=== PATIENT | male | born 1985 | race Caucasian/White ===

== ENCOUNTER 2024-02-02 01:06 | Inpatient (IN) | payer MEDICAID ==
[~2024-02-02] VITALS: Ht 175.3 cm; Wt 76.0 kg
[2024-02-02] MEDS ORDERED: vancomycin/NS 1 GM ADD-VANTAGE 250 ML IV ONE (02:45)
[2024-02-02 03:18] LABS: BASOPHILS # (AUTO) 0.1 X10'3 (0-0.2); BASOPHILS % (AUTO) 0.9 % (0-1); EOSINOPHILS # (AUTO) 0.3 X10'3 (0-0.9); EOSINOPHILS % (AUTO) 2.8 % (0-6); HEMATOCRIT 45.7 % (42.0-52.0); HEMOGLOBIN 15.1 g/dl (14.0-17.9); LYMPHOCYTES % (AUTO) 20.2 % (21-51); MEAN CORPUSCULAR HEMOGLOBIN 29.9 PG (27.0-31.0); MEAN CORPUSCULAR VOLUME 90.6 FL (78-98); MEAN PLATELET VOLUME 6.2 FL (7.4-10.4); MONOCYTES # (AUTO) 0.8 X10'3 (0-0.9); MONOCYTES % (AUTO) 7.8 % (2-12); NEUTROPHILS # (AUTO) 6.9 X10'3 (1.8-7.7); NEUTROPHILS % (AUTO) 68.3 % (42-75); PLATELET COUNT 491 X10'3 (140-440); RED BLOOD COUNT 5.05 X10'6 (4.70-6.10); RED CELL DISTRIBUTION WIDTH 13.5 % (11.5-14.5); WHITE BLOOD COUNT 10.1 X10'3 (4.5-11.0)
[2024-02-02] MEDS: normal saline 1000ML IV soln IV ONE (03:21)
[2024-02-02] MEDS: piperacillin/tazo 3.375gm/50ml 50 ML IV ONE (03:22)
[2024-02-02 03:28] LABS: ANION GAP 6 (8-16); BLOOD UREA NITROGEN 17 MG/DL (7-18); BUN/CREATININE RATIO 19.3 (10.0-20.0); CALCIUM 9.3 MG/DL (8.5-10.1); CHLORIDE 101 MMOL/L (99-107); CREATININE 0.88 MG/DL (0.60-1.10); GLUCOSE 71 MG/DL (70-104); MAGNESIUM 2.4 MG/DL (1.5-2.4); SODIUM 138 MMOL/L (135-145); TOTAL CARBON DIOXIDE 31.2 MMOL/L (24-32); eCRCL 115 ML/MIN; eGFR > 90 ML/MIN
[2024-02-02] MEDS ORDERED: iohexol 300mg/ml 100ml inj. ONE (04:11)
[2024-02-02] MEDS: VANCOMYCIN 1GM 200ML H20 (PEG) 200 ML IV ONE (04:41)
[2024-02-02] MEDS ORDERED: potassium Cl 40MEQ/1/2NS 520ml 520 ML IV PRN (05:45)
[2024-02-02] MEDS ORDERED: magnesium sulf-water 2g/50mL 50 ML IV PRN (05:45)
[2024-02-02] MEDS ORDERED: acetaminophen 325mg tablet PO PRN (05:45)
[2024-02-02] MEDS ORDERED: magnesium Cl slow-release 64mg tablet PO PRN (05:45)
[2024-02-02] MEDS ORDERED: ondansetron/PF 4mg/2ml inj IV PRN (05:45)
[2024-02-02] MEDS ORDERED: magnesium sulf-water 4G/100mL 100 ML IV PRN (05:45)
[2024-02-02] MEDS ORDERED: potassium Cl 20 mEq SR tablet PO PRN ×2 (05:45)
[2024-02-02] MEDS: normal saline 1000ml 1,000 ML IV SCH (05:57)
[2024-02-02 06:15] LABS: CLARITY,URINE CLEAR (Clear); COLOR,URINE YELLOW (Yellow); PROTEIN,URINE NEGATIVE (Neg)
[2024-02-02 06:16] LABS: BILIRUBIN,URINE NEGATIVE (Neg); GLUCOSE, URINE NEGATIVE (Neg); KETONES,URINE NEGATIVE (Neg); LEUKOCYTE ESTERASE ,URINE NEGATIVE (Neg); NITRITES, URINE NEGATIVE (Neg); OCCULT BLOOD,URINE NEGATIVE (Neg); UROBILINOGEN,URINE 0.2 E.U/dL (0.2-1.0)
[2024-02-02 06:23] LABS: UA COLLECTION TYPE CLN CATCH MIDSTREAM
[2024-02-02] MEDS: nicotine 14mg patch - 24hr TD ONE (06:24)
[2024-02-02 06:46] LABS: URINE AMPHETAMINE SCREEN POSITIVE (Neg); URINE BARBITUATE SCREEN NEGATIVE (Neg); URINE BENZODIAZEPINES SCREEN NEGATIVE (Neg); URINE CANNABINOID SCREEN NEGATIVE (Neg); URINE COCAINE SCREEN NEGATIVE (Neg); URINE METHADONE SCREEN NEGATIVE (Neg); URINE OPIATE SCREEN POSITIVE (Neg); URINE PHENCYCLIDINE SCREEN NEGATIVE (Neg)
[2024-02-02 06:58] LABS: HIV ANTIBODY 1&2 RAPID NON-REACTIVE (Neg)
[2024-02-02] MEDS: PERFLUTREN PROTEIN-A MICROSPHR (Optison) 0.22 MG/ML 3ML VIAL IV ONE (07:05)
[2024-02-02] MEDS: K and/or MAG REPLACEMENT MC SCH (08:00)
[2024-02-02] MEDS: morphine 4 MG/ML inj SYRINge IV SCH (08:12)
[2024-02-02] MEDS: piperacillin/tazo 3.375gm/50ml 50 ML IV SCH (10:22)
[2024-02-02 17:00] VITALS: BP 92/46; PULSE 86; RESP 18; TEMP 98; O2SAT 97
[2024-02-02] MEDS: VANCOMYCIN/WATER FOR INJ (PEG) 1.25GM/250 ML IVPB IV SCH (19:46)
[2024-02-02 20:00] VITALS: RESP 16; O2SAT 97
[2024-02-02 22:00] VITALS: BP 110/64; PULSE 78; RESP 16; TEMP 97.7; O2SAT 97
[2024-02-03 06:00] VITALS: BP 102/50; PULSE 81; RESP 16; TEMP 98; O2SAT 99
[2024-02-03 06:51] LABS: BASOPHILS # (AUTO) 0.1 X10'3 (0-0.2); EOSINOPHILS # (AUTO) 0.3 X10'3 (0-0.9); EOSINOPHILS % (AUTO) 3.6 % (0-6); HEMATOCRIT 42.8 % (42.0-52.0); HEMOGLOBIN 14.2 g/dl (14.0-17.9); LYMPHOCYTES # (AUTO) 1.9 X10'3 (1.1-4.8); LYMPHOCYTES % (AUTO) 22.4 % (21-51); MEAN CORPUSCULAR HEMOGLOBIN 30.2 PG (27.0-31.0); MEAN CORPUSCULAR HGB CONC 33.1 g/dL (33.0-36.5); MEAN CORPUSCULAR VOLUME 91.2 FL (78-98); MEAN PLATELET VOLUME 6.3 FL (7.4-10.4); MONOCYTES # (AUTO) 0.7 X10'3 (0-0.9); MONOCYTES % (AUTO) 8.7 % (2-12); NEUTROPHILS # (AUTO) 5.3 X10'3 (1.8-7.7); NEUTROPHILS % (AUTO) 64.3 % (42-75); PLATELET COUNT 480 X10'3 (140-440); RED BLOOD COUNT 4.69 X10'6 (4.70-6.10); RED CELL DISTRIBUTION WIDTH 13.5 % (11.5-14.5); WHITE BLOOD COUNT 8.3 X10'3 (4.5-11.0)
[2024-02-03 07:17] LABS: ALBUMIN 2.5 G/DL (3.4-5.0); ANION GAP 10 (8-16); BLOOD UREA NITROGEN 11 MG/DL (7-18); BUN/CREATININE RATIO 12.8 (10.0-20.0); CALCIUM 9.1 MG/DL (8.5-10.1); CHLORIDE 103 MMOL/L (99-107); CREATININE 0.86 MG/DL (0.60-1.10); GLUCOSE 105 MG/DL (70-104); SODIUM 138 MMOL/L (135-145); TOTAL CARBON DIOXIDE 25.1 MMOL/L (24-32); eCRCL 118 ML/MIN; eGFR > 90 ML/MIN
[2024-02-03] MEDS: piperacillin/tazo 3.375gm/50ml 50 ML IV SCH (07:25)
[2024-02-03 08:00] VITALS: RESP 16; O2SAT 97
[2024-02-03] MEDS: HYDROcodone/acetaminophen 5mg/325mg tablet PO PRN (08:35)
[2024-02-03 10:00] VITALS: BP_SYST 104; BP_SYST 115; BP_DIAS 67; BP_DIAS 71; PULSE 109; PULSE 82; RESP 16; TEMP 98.2; TEMP 98.3; O2SAT 96; O2SAT 97
[2024-02-03 18:00] VITALS: BP 99/40; PULSE 83; RESP 18; TEMP 98.1; O2SAT 100
[2024-02-03 22:00] VITALS: BP 101/61; PULSE 87; RESP 18; TEMP 98.2; O2SAT 98
[2024-02-04] MEDS: VANCOMYCIN LEVEL IV ONE (04:41)
[2024-02-04 04:43] LABS: BASOPHILS # (AUTO) 0.1 X10'3 (0-0.2); EOSINOPHILS # (AUTO) 0.2 X10'3 (0-0.9); EOSINOPHILS % (AUTO) 2.9 % (0-6); HEMATOCRIT 42.5 % (42.0-52.0); LYMPHOCYTES # (AUTO) 1.7 X10'3 (1.1-4.8); LYMPHOCYTES % (AUTO) 22.7 % (21-51); MEAN CORPUSCULAR HGB CONC 32.9 g/dL (33.0-36.5); MEAN CORPUSCULAR VOLUME 91.1 FL (78-98); MEAN PLATELET VOLUME 6.2 FL (7.4-10.4); MONOCYTES # (AUTO) 0.6 X10'3 (0-0.9); MONOCYTES % (AUTO) 7.6 % (2-12); NEUTROPHILS # (AUTO) 4.9 X10'3 (1.8-7.7); NEUTROPHILS % (AUTO) 65.8 % (42-75); PLATELET COUNT 478 X10'3 (140-440); RED BLOOD COUNT 4.66 X10'6 (4.70-6.10); RED CELL DISTRIBUTION WIDTH 13.5 % (11.5-14.5); WHITE BLOOD COUNT 7.4 X10'3 (4.5-11.0)
[2024-02-04 04:57] LABS: ALBUMIN 2.8 G/DL (3.4-5.0); ANION GAP 6 (8-16); BLOOD UREA NITROGEN 12 MG/DL (7-18); BUN/CREATININE RATIO 12.5 (10.0-20.0); CALCIUM 9.1 MG/DL (8.5-10.1); CHLORIDE 99 MMOL/L (99-107); CREATININE 0.96 MG/DL (0.60-1.10); GLUCOSE 115 MG/DL (70-104); POTASSIUM 3.8 MMOL/L (3.5-5.1); SODIUM 136 MMOL/L (135-145); TOTAL CARBON DIOXIDE 31.5 MMOL/L (24-32); VANCOMYCIN,TROUGH 12.1 ug/mL (10.0-20.0); eCRCL 105 ML/MIN; eGFR 88 ML/MIN
[2024-02-04 06:00] VITALS: BP 132/84; PULSE 82; RESP 16; TEMP 97.5; O2SAT 97
[2024-02-04 10:00] VITALS: BP 90/49; PULSE 81; RESP 15; TEMP 97.7; O2SAT 98
[2024-02-04] MEDS: VANCOMYCIN/WATER FOR INJ (PEG) 1.5GM/300 ML IVPB IV SCH (16:34)
[2024-02-04 18:00] VITALS: BP 113/73; PULSE 86; RESP 17; TEMP 97.7; O2SAT 97
[2024-02-05 06:00] VITALS: BP 97/58; PULSE 77; RESP 13; TEMP 98.4; O2SAT 96
[2024-02-05 07:34] LABS: BASOPHILS # (AUTO) 0.1 X10'3 (0-0.2); BASOPHILS % (AUTO) 1.5 % (0-1); EOSINOPHILS # (AUTO) 0.2 X10'3 (0-0.9); EOSINOPHILS % (AUTO) 2.6 % (0-6); HEMATOCRIT 42.6 % (42.0-52.0); HEMOGLOBIN 14.4 g/dl (14.0-17.9); LYMPHOCYTES # (AUTO) 1.7 X10'3 (1.1-4.8); LYMPHOCYTES % (AUTO) 25.6 % (21-51); MEAN CORPUSCULAR HEMOGLOBIN 30.8 PG (27.0-31.0); MEAN CORPUSCULAR HGB CONC 33.7 g/dL (33.0-36.5); MEAN CORPUSCULAR VOLUME 91.4 FL (78-98); MEAN PLATELET VOLUME 6.2 FL (7.4-10.4); MONOCYTES # (AUTO) 0.5 X10'3 (0-0.9); MONOCYTES % (AUTO) 7.2 % (2-12); NEUTROPHILS # (AUTO) 4.2 X10'3 (1.8-7.7); NEUTROPHILS % (AUTO) 63.1 % (42-75); PLATELET COUNT 493 X10'3 (140-440); RED BLOOD COUNT 4.67 X10'6 (4.70-6.10); RED CELL DISTRIBUTION WIDTH 13.1 % (11.5-14.5); WHITE BLOOD COUNT 6.6 X10'3 (4.5-11.0)
[2024-02-05 07:50] LABS: ALBUMIN 2.6 G/DL (3.4-5.0); ANION GAP 3 (8-16); BLOOD UREA NITROGEN 10 MG/DL (7-18); BUN/CREATININE RATIO 10.9 (10.0-20.0); CHLORIDE 99 MMOL/L (99-107); CREATININE 0.92 MG/DL (0.60-1.10); GLUCOSE 93 MG/DL (70-104); POTASSIUM 4.4 MMOL/L (3.5-5.1); SODIUM 135 MMOL/L (135-145); TOTAL CARBON DIOXIDE 33.3 MMOL/L (24-32); eCRCL 110 ML/MIN; eGFR > 90 ML/MIN
[2024-02-05 08:00] VITALS: RESP 16; O2SAT 97
[2024-02-05 10:00] VITALS: BP 111/63; PULSE 85; RESP 16; TEMP 98.4; O2SAT 99
[2024-02-05] MEDS: linezolid 600mg tablet PO SCH (11:08)
[2024-02-05 18:00] VITALS: BP 122/63; PULSE 78; RESP 18; O2SAT 99
[2024-02-05 22:00] VITALS: BP 107/55; PULSE 84; RESP 18; TEMP 98.2; O2SAT 99
[2024-02-06] VITALS (15 sets, daily range): BP systolic 89–167; BP diastolic 43–101; PULSE 60–97; RESP 11–17; TEMP 98.3–98.6; O2SAT 97–100
[2024-02-06] MEDS: VANCOMYCIN LEVEL IV ONE (05:15)
[2024-02-06 05:47] LABS: ALBUMIN 2.6 G/DL (3.4-5.0); ANION GAP 5 (8-16); BLOOD UREA NITROGEN 10 MG/DL (7-18); BUN/CREATININE RATIO 12.3 (10.0-20.0); CALCIUM 9.2 MG/DL (8.5-10.1); CHLORIDE 102 MMOL/L (99-107); CREATININE 0.81 MG/DL (0.60-1.10); GLUCOSE 107 MG/DL (70-104); POTASSIUM 4.1 MMOL/L (3.5-5.1); SODIUM 137 MMOL/L (135-145); TOTAL CARBON DIOXIDE 29.7 MMOL/L (24-32); VANCOMYCIN,TROUGH 10.9 ug/mL (10.0-20.0); eCRCL 125 ML/MIN; eGFR > 90 ML/MIN
[2024-02-06] MEDS: ringers solution, lacted 1,000 ML IV ONE (10:25)
[2024-02-06] MEDS ORDERED: enalaprilat dihydrate 2.5mg/2ml vial IV PRN (14:25)
[2024-02-06] MEDS ORDERED: proCHLORperazine 10 MG/2 ml inj IV PRN (14:25)
[2024-02-06] MEDS ORDERED: labetalol 20mg/4ml (5mg/ml) syringe IV PRN (14:25)
[2024-02-06] MEDS ORDERED: ondansetron/PF 4mg/2ml inj IV PRN (14:25)
[2024-02-06] MEDS: ringers solution, lacted 1,000 ML IV SCH (14:25)
[2024-02-06] MEDS ORDERED: meperidine/PF 25mg/ml syringe IV PRN ×3 (14:25)
[2024-02-06] MEDS ORDERED: bacitracin 15gm ointment TP ONE (16:05)
[2024-02-06] MEDS: VANCOMYCIN 1.75GM/WATER FOR INJ (PEG) 350 ML IVPB IV SCH (16:35)
[2024-02-06] MEDS ORDERED: vancomycin 1,750 MG in NS 350ml IV soln IV SCH (17:00)
[2024-02-06] MEDS ORDERED: sevoflurane 250ml liquid IH ONE (17:52)
[2024-02-06] MEDS ORDERED: midazolam 1 mg/ML 2ml injection ONE (17:54)
[2024-02-06] MEDS ORDERED: fentaNYL /PF 50mcg/ml 5ml ampule ONE (17:55)
[2024-02-06] MEDS ORDERED: propofol inj 20 ML IV ONE (17:58)
[2024-02-06] MEDS ORDERED: LIDOcaine 2% (20mg/ml) 5ml vial ONE (17:58)
[2024-02-06] MEDS ORDERED: ondansetron/PF 4mg/2ml inj ONE (18:44)
[2024-02-06] MEDS: morphine 2 MG/ML inj. syringe IV PRN (19:15)
[2024-02-06] MEDS: morphine 4 MG/ML inj SYRINge IV PRN (19:48)
[2024-02-07] VITALS (9 sets, daily range): BP systolic 104–125; BP diastolic 50–101; PULSE 74–104; RESP 14–18; TEMP 98.1–98.7; O2SAT 97–100
[2024-02-07] MEDS: famotidine 20mg tablet PO ONE (06:15)
[2024-02-07 07:57] LABS: BASOPHILS # (AUTO) 0.1 X10'3 (0-0.2); BASOPHILS % (AUTO) 0.7 % (0-1); EOSINOPHILS % (AUTO) 0.4 % (0-6); HEMATOCRIT 40.1 % (42.0-52.0); HEMOGLOBIN 13.4 g/dl (14.0-17.9); LYMPHOCYTES # (AUTO) 1.3 X10'3 (1.1-4.8); LYMPHOCYTES % (AUTO) 11.3 % (21-51); MEAN CORPUSCULAR HEMOGLOBIN 30.3 PG (27.0-31.0); MEAN CORPUSCULAR HGB CONC 33.3 g/dL (33.0-36.5); MEAN CORPUSCULAR VOLUME 90.9 FL (78-98); MEAN PLATELET VOLUME 6.4 FL (7.4-10.4); MONOCYTES # (AUTO) 0.5 X10'3 (0-0.9); MONOCYTES % (AUTO) 3.9 % (2-12); NEUTROPHILS % (AUTO) 83.7 % (42-75); PLATELET COUNT 537 X10'3 (140-440); RED BLOOD COUNT 4.41 X10'6 (4.70-6.10); RED CELL DISTRIBUTION WIDTH 13.5 % (11.5-14.5)
[2024-02-07 08:03] LABS: ALBUMIN 2.8 G/DL (3.4-5.0); ANION GAP 6 (8-16); BLOOD UREA NITROGEN 11 MG/DL (7-18); BUN/CREATININE RATIO 14.1 (10.0-20.0); CALCIUM 8.8 MG/DL (8.5-10.1); CHLORIDE 100 MMOL/L (99-107); CREATININE 0.78 MG/DL (0.60-1.10); GLUCOSE 98 MG/DL (70-104); POTASSIUM 4.1 MMOL/L (3.5-5.1); SODIUM 134 MMOL/L (135-145); TOTAL CARBON DIOXIDE 28.3 MMOL/L (24-32); eCRCL 130 ML/MIN; eGFR > 90 ML/MIN
[2024-02-07 08:26] LABS: BASOPHILS # (AUTO) 0.1 X10'3 (0-0.2); BASOPHILS % (AUTO) 0.5 % (0-1); EOSINOPHILS % (AUTO) 0.4 % (0-6); HEMATOCRIT 39.7 % (42.0-52.0); HEMOGLOBIN 13.1 g/dl (14.0-17.9); LYMPHOCYTES # (AUTO) 1.4 X10'3 (1.1-4.8); LYMPHOCYTES % (AUTO) 10.3 % (21-51); MEAN CORPUSCULAR HEMOGLOBIN 30.1 PG (27.0-31.0); MEAN CORPUSCULAR VOLUME 91.2 FL (78-98); MEAN PLATELET VOLUME 6.3 FL (7.4-10.4); MONOCYTES # (AUTO) 0.5 X10'3 (0-0.9); MONOCYTES % (AUTO) 3.8 % (2-12); NEUTROPHILS # (AUTO) 11.3 X10'3 (1.8-7.7); PLATELET COUNT 555 X10'3 (140-440); RED BLOOD COUNT 4.35 X10'6 (4.70-6.10); RED CELL DISTRIBUTION WIDTH 13.4 % (11.5-14.5); WHITE BLOOD COUNT 13.2 X10'3 (4.5-11.0)
[2024-02-07 08:28] LABS: ALANINE AMINOTRANSFERASE 50 U/L (12-78); ALBUMIN 2.8 G/DL (3.4-5.0); ALBUMIN/GLOBULIN RATIO 0.7 (1.1-1.5); ALKALINE PHOSPHATASE 50 IU/L (46-116); ANION GAP 6 (8-16); ASPARTATE AMINO TRANSFERASE 30 U/L (10-37); BILIRUBIN,TOTAL 0.2 MG/DL (0.1-1.0); BLOOD UREA NITROGEN 10 MG/DL (7-18); BUN/CREATININE RATIO 12.2 (10.0-20.0); CALCIUM 8.8 MG/DL (8.5-10.1); CHLORIDE 99 MMOL/L (99-107); CREATININE 0.82 MG/DL (0.60-1.10); GLUCOSE 99 MG/DL (70-104); POTASSIUM 4.2 MMOL/L (3.5-5.1); SODIUM 133 MMOL/L (135-145); TOTAL CARBON DIOXIDE 28.2 MMOL/L (24-32); TOTAL PROTEIN 7.1 G/DL (6.4-8.2); eCRCL 123 ML/MIN; eGFR > 90 ML/MIN
[2024-02-08] MEDS: VANCOMYCIN LEVEL IV ONE (04:30)
[2024-02-08 06:00] VITALS: BP 116/65; PULSE 82; RESP 16; TEMP 98; O2SAT 97
[2024-02-08 12:31] VITALS: RESP 16
[2024-02-08] MEDS ORDERED: DICL50TA8 PO (14:56)
[2024-02-08] MEDS ORDERED: ACET-2006 PO (14:56)
[2024-02-08] MEDS ORDERED: LINE600T11 PO (14:56)
[2024-02-08] MEDS ORDERED: VANCOMYCIN 2GM/400ML H20 (PEG) 400 ML IV SCH (17:00)
== END 2024-02-08 17:15 | disposition home health service (06) | DRG 383 ==
LOC: ER 01:07 → ED HOLD 05:43 → ORTHO 4S 16:37
PROVIDERS: ADMIT Internal Medicine Pulmonary Disease; ATTEND Nurse Practitioner Family
PROC: BW2F1ZZ Computerized Tomography (CT Scan) of Neck using Low Osmolar Contrast (ICD-10-PCS; 2024-02-02)
PROC: 0JB40ZZ Excision of Right Neck Subcutaneous Tissue and Fascia, Open Approach (ICD-10-PCS; principal; 2024-02-06 17:52)
DX: L03.221 Cellulitis of neck (principal); I42.9 Cardiomyopathy, unspecified; I50.22 Chronic systolic (congestive) heart failure; L02.11 Cutaneous abscess of neck; F17.210 Nicotine dependence, cigarettes, uncomplicated; F15.10 Other stimulant abuse, uncomplicated; Z88.8 Allergy status to other drugs, medicaments and biological substances
CPT/HCPCS: 36415; 70450; 70491; 80048; 80053; 80202; 80305; 81003; 82948; 83605; 83735; 84145; 85025; 86703; 87040; 87070; 87077; 87081; 87186; 93005; 93306; 99285; A4618; A6196; A6253; A6260; A6446; A6449; A7000; G0378; J1100; J2250; J2270; J2405; J2543; J2704; J3010; J3370; J3372; J3490; J7030; J7120; Q9967